=== PATIENT | female | born 1940 | race Caucasian/White ===

== ENCOUNTER 2020-01-22 23:32 | Inpatient (IN) ==
[2020-01-23 00:53] LABS: Basophils # 0.1 10*3/uL (0.0-0.2); Basophils % 0.8 % (0.0-0.8); Eosinophils # 0.2 10*3/uL (0.0-0.87); Eosinophils % 3.1 % (0.00-10.9); Hemoglobin 11.5 GM/DL (12.0-16.0); Immature Granulocytes % 0.3 %; Immature Granulocytes Absolute 0.02 #; Lymphocytes # 2.3 10*3/uL (1.4-4.0); Lymphocytes % 39.2 % (21.3-54.2); Mean Corpuscular HGB Conc 35.9 GM/DL (32-36); Mean Corpuscular Volume 90.1 FL (87-102); Mean Platelet Volume 9.2 FL (9.6-12.0); Monocytes % 7.6 % (1.7-12.7); Platelet Count 233 T/CUMM (130-400); Red Blood Count 3.55 MC/CUMM (3.8-5.5); Red Cell Distribution Width 12.4 % (9.3-17.3); White Blood Count 5.9 T/CUMM (4-12)
[2020-01-23 01:00] LABS: Alanine Aminotransferase 37 U/L (13-56); Albumin 3.8 G/DL (3.4-5.0); Alkaline Phosphatase 70 U/L (45-117); Aspartate Amino Transferase 27 U/L (0-37); Blood Urea Nitrogen 22 MG/DL (7-18); Calcium 9.3 MG/DL (8.5-10.1); Estimated Glom Filtration Rate 62 ML/MIN; Glucose 102 MG/DL (74-106); Osmolality,Calculated 257.2 MOS/KG (273-304); Total Protein 6.8 G/DL (6.4-8.3); Troponin I < 0.015 NG/ML (0.00-0.045)
[2020-01-23 01:07] LABS: PT Patient Result 11.1 SECS (9.8-11.9); Partial Thromboplastin Time 30.3 SECS (23.9-33.8)
[2020-01-23] MEDS ORDERED: MECLIZINE 25 MG TABLET PO PRN (02:38)
[2020-01-23] MEDS ORDERED: POTASSIUM CHLORIDE 20 MEQ TABLET PO PRN (02:44)
[2020-01-23] MEDS ORDERED: MAGNESIUM SULF RIDER 2 GM in PREMIX 1 EACH IV PRN (02:44)
[2020-01-23] MEDS ORDERED: MAGNESIUM SULF RIDER 4 GM in PREMIX 1 EACH IV PRN (02:44)
[2020-01-23 02:54] LABS: Bilirubin,Urine Negative (Negative); Blood, Urine Negative (Negative); Glucose,Urine (UA) Negative (Negative); Ketones,Urine Negative (Negative); Nitrite,Urine Negative (Negative); Protein,Urine Negative; RBC,Urine <1 /HPF (0-4); Squamous Epithelial Cell,Urine Occasional /HPF (0-10); Urine Appearance CLEAR (Clear); Urine Color Straw (Yellow); Urine Specific Gravity 1.005 (1.001-1.035); Urine Urobilinogen < 2.0 EU/DL (0.2-1.0); WBC,Urine 7 /HPF (0-6)
[2020-01-23] MEDS ORDERED: DOCUSATE SODIUM 100 MG CAPSULE PO PRN (03:55)
[2020-01-23] MEDS ORDERED: ACETAMINOPHEN 325 MG TABLET PO PRN (03:55)
[2020-01-23] MEDS ORDERED: GLUCAGON 1 MG VIAL IM PRN (03:55)
[2020-01-23] MEDS ORDERED: ONDANSETRON 4 MG/2 ML VIAL IV PRN (03:55)
[2020-01-23] MEDS ORDERED: DEXTROSE 50% 25 GM/50 ML VIAL IV PRN (03:55)
[2020-01-23] MEDS ORDERED: hydrALAZINE 20 MG/1 ML VIAL IV PRN (03:55)
[2020-01-23] MEDS: SODIUM CHLORIDE 0.9% 1,000 ML IV SCH ×3 (05:08→19:46)
[2020-01-23] MEDS ORDERED: busPIRone 15 MG TABLET PO SCH (09:00)
[2020-01-23] MEDS: INSULIN LISPRO 100 UNIT/ML SUBCUT SCH ×4 (09:30→22:11)
[2020-01-23] MEDS: lisinopriL 20 MG TABLET PO SCH (11:00)
[2020-01-23] MEDS: PANTOPRAZOLE 40 MG TABLET PO SCH (11:00)
[2020-01-23] MEDS: ZINC SULFATE 220 MG CAPSULE PO SCH (11:00)
[2020-01-23] MEDS: SERTRALINE 50 MG TABLET PO SCH (11:00)
[2020-01-23] MEDS: amLODIPine 2.5 MG TABLET PO SCH (11:00)
[2020-01-23] MEDS: MULTIVITAMIN (CENTRUM) TABLET PO SCH (11:00)
[2020-01-23] MEDS: FOLIC ACID 0.4 MG TABLET PO SCH (11:00)
[2020-01-23] MEDS: CARBIDOPA/LEVODOPA CR 50-200 MG TABLET PO SCH ×2 (11:00→22:11)
[2020-01-23] MEDS: CETIRIZINE 10 MG TABLET PO SCH (11:00)
[2020-01-23] MEDS: OREGANO OIL 1500 MG PO SCH ×2 (11:00→22:11)
[2020-01-23] MEDS: MAGNESIUM OXIDE 400 MG TABLET PO SCH ×2 (11:00→22:11)
[2020-01-23] MEDS: MELOXICAM 7.5 MG TABLET PO SCH (11:00)
[2020-01-23] MEDS: GLUCOSAMINE 500 MG TABLET PO SCH ×3 (11:00→22:11)
[2020-01-23] MEDS: carvediloL 3.125 MG TABLET PO SCH ×2 (11:00→17:52)
[2020-01-23] MEDS: ENOXAPARIN 40 MG/0.4 ML SYRINGE SUBCUT SCH (16:07)
[2020-01-23] MEDS: ASPIRIN EC 81 MG TABLET PO SCH (16:07)
[2020-01-23] MEDS ORDERED: diphenhydrAMINE CAP 25 MG CAPSULE PO SCH (21:00)
[2020-01-23] MEDS: MIRTAZAPINE 30 MG TABLET PO SCH (22:11)
[2020-01-23] MEDS: SIMVASTATIN 20 MG TABLET PO SCH (22:12)
[2020-01-23] MEDS ORDERED: ALUMINUM/MAGNES/SIMETH MAX STR 30 ML UDCUP PO PRN (23:08)
[2020-01-24] MEDS: SODIUM CHLORIDE 0.9% 1,000 ML IV SCH (05:27)
[2020-01-24 05:41] LABS: Basophils % 0.7 % (0.0-0.8); Eosinophils # 0.2 10*3/uL (0.0-0.87); Eosinophils % 3.1 % (0.00-10.9); Hematocrit 32.6 VOL% (35.7-47.0); Immature Granulocytes % 0.4 %; Immature Granulocytes Absolute 0.02 #; Lymphocytes # 2.2 10*3/uL (1.4-4.0); Lymphocytes % 39.3 % (21.3-54.2); Mean Corpuscular HGB Conc 33.7 GM/DL (32-36); Mean Corpuscular Volume 92.9 FL (87-102); Monocytes % 7.1 % (1.7-12.7); Neutrophils % 49.4 % (38.7-73.9); Platelet Count 227 T/CUMM (130-400); Red Blood Count 3.51 MC/CUMM (3.8-5.5); Red Cell Distribution Width 12.7 % (9.3-17.3); White Blood Count 5.5 T/CUMM (4-12)
[2020-01-24 07:19] LABS: Calcium 8.9 MG/DL (8.5-10.1); Osmolality,Calculated 265.4 MOS/KG (273-304)
[2020-01-24] MEDS: INSULIN LISPRO 100 UNIT/ML SUBCUT SCH ×4 (08:16→21:14)
[2020-01-24] MEDS: carvediloL 3.125 MG TABLET PO SCH ×2 (10:24→17:22)
[2020-01-24] MEDS: MAGNESIUM OXIDE 400 MG TABLET PO SCH ×2 (10:25→21:12)
[2020-01-24] MEDS: FOLIC ACID 0.4 MG TABLET PO SCH (10:25)
[2020-01-24] MEDS: MULTIVITAMIN (CENTRUM) TABLET PO SCH (10:25)
[2020-01-24] MEDS: GLUCOSAMINE 500 MG TABLET PO SCH ×3 (10:25→21:11)
[2020-01-24] MEDS: ASPIRIN EC 81 MG TABLET PO SCH (10:25)
[2020-01-24] MEDS: MELOXICAM 7.5 MG TABLET PO SCH (10:26)
[2020-01-24] MEDS: lisinopriL 20 MG TABLET PO SCH (10:26)
[2020-01-24] MEDS: ZINC SULFATE 220 MG CAPSULE PO SCH (10:26)
[2020-01-24] MEDS: PANTOPRAZOLE 40 MG TABLET PO SCH (10:26)
[2020-01-24] MEDS: SERTRALINE 50 MG TABLET PO SCH (10:26)
[2020-01-24] MEDS: amLODIPine 2.5 MG TABLET PO SCH (10:26)
[2020-01-24] MEDS: OREGANO OIL 1500 MG PO SCH ×2 (10:26→21:19)
[2020-01-24] MEDS: CARBIDOPA/LEVODOPA CR 50-200 MG TABLET PO SCH ×2 (10:26→21:13)
[2020-01-24] MEDS: CETIRIZINE 10 MG TABLET PO SCH (10:27)
[2020-01-24] MEDS: MEROPENEM 500 MG in SODIUM CHLORIDE 0.9% 100 ML IV SCH ×3 (10:38→21:19)
[2020-01-24 10:42] LABS: Thyroid Stimulating Hormone 2.93 uIU/ml (0.358-3.74)
[2020-01-24] MEDS: ENOXAPARIN 40 MG/0.4 ML SYRINGE SUBCUT SCH (14:05)
[2020-01-24] MEDS: SIMVASTATIN 20 MG TABLET PO SCH (21:13)
[2020-01-24] MEDS: MIRTAZAPINE 30 MG TABLET PO SCH (21:13)
[2020-01-25] MEDS: MEROPENEM 500 MG in SODIUM CHLORIDE 0.9% 100 ML IV SCH (03:49)
[2020-01-25 05:51] LABS: Basophils % 0.5 % (0.0-0.8); Eosinophils # 0.2 10*3/uL (0.0-0.87); Eosinophils % 2.8 % (0.00-10.9); Hematocrit 30.7 VOL% (35.7-47.0); Hemoglobin 10.7 GM/DL (12.0-16.0); Immature Granulocytes % 0.3 %; Immature Granulocytes Absolute 0.02 #; Lymphocytes # 1.9 10*3/uL (1.4-4.0); Lymphocytes % 29.9 % (21.3-54.2); Mean Corpuscular HGB Conc 34.9 GM/DL (32-36); Mean Corpuscular Volume 91.1 FL (87-102); Monocytes % 7.1 % (1.7-12.7); Neutrophils % 59.4 % (38.7-73.9); Platelet Count 200 T/CUMM (130-400); Red Blood Count 3.37 MC/CUMM (3.8-5.5); Red Cell Distribution Width 12.9 % (9.3-17.3); White Blood Count 6.4 T/CUMM (4-12)
[2020-01-25 06:15] LABS: Calcium 8.9 MG/DL (8.5-10.1); Osmolality,Calculated 264.4 MOS/KG (273-304)
[2020-01-25] MEDS: INSULIN LISPRO 100 UNIT/ML SUBCUT SCH ×4 (07:55→21:52)
[2020-01-25] MEDS: carvediloL 3.125 MG TABLET PO SCH ×2 (08:47→17:20)
[2020-01-25] MEDS: ASPIRIN EC 81 MG TABLET PO SCH (08:48)
[2020-01-25] MEDS: FOLIC ACID 0.4 MG TABLET PO SCH (08:48)
[2020-01-25] MEDS: GLUCOSAMINE 500 MG TABLET PO SCH ×3 (08:48→21:52)
[2020-01-25] MEDS: MAGNESIUM OXIDE 400 MG TABLET PO SCH ×2 (08:48→21:51)
[2020-01-25] MEDS: MULTIVITAMIN (CENTRUM) TABLET PO SCH (08:48)
[2020-01-25] MEDS: OREGANO OIL 1500 MG PO SCH ×2 (08:49→21:50)
[2020-01-25] MEDS: lisinopriL 20 MG TABLET PO SCH (08:49)
[2020-01-25] MEDS: MELOXICAM 7.5 MG TABLET PO SCH (08:49)
[2020-01-25] MEDS: amLODIPine 2.5 MG TABLET PO SCH (08:49)
[2020-01-25] MEDS: PANTOPRAZOLE 40 MG TABLET PO SCH (08:50)
[2020-01-25] MEDS: SERTRALINE 50 MG TABLET PO SCH (08:50)
[2020-01-25] MEDS: ZINC SULFATE 220 MG CAPSULE PO SCH (08:50)
[2020-01-25] MEDS: CARBIDOPA/LEVODOPA CR 50-200 MG TABLET PO SCH ×2 (08:50→21:51)
[2020-01-25] MEDS: ENOXAPARIN 40 MG/0.4 ML SYRINGE SUBCUT SCH (13:37)
[2020-01-25] MEDS: SIMVASTATIN 20 MG TABLET PO SCH (21:51)
[2020-01-25] MEDS: MIRTAZAPINE 30 MG TABLET PO SCH (21:52)
[2020-01-26 05:11] LABS: Basophils % 0.6 % (0.0-0.8); Eosinophils # 0.2 10*3/uL (0.0-0.87); Eosinophils % 3.6 % (0.00-10.9); Hematocrit 29.9 VOL% (35.7-47.0); Hemoglobin 10.2 GM/DL (12.0-16.0); Immature Granulocytes % 0.2 %; Immature Granulocytes Absolute 0.01 #; Lymphocytes # 2.1 10*3/uL (1.4-4.0); Lymphocytes % 41.3 % (21.3-54.2); Mean Corpuscular HGB Conc 34.1 GM/DL (32-36); Mean Corpuscular Volume 92.9 FL (87-102); Mean Platelet Volume 9.3 FL (9.6-12.0); Monocytes % 7.8 % (1.7-12.7); Neutrophils % 46.5 % (38.7-73.9); Platelet Count 202 T/CUMM (130-400); Red Blood Count 3.22 MC/CUMM (3.8-5.5); Red Cell Distribution Width 13.1 % (9.3-17.3)
[2020-01-26 05:38] LABS: Calcium 8.8 MG/DL (8.5-10.1)
[2020-01-26] MEDS: INSULIN LISPRO 100 UNIT/ML SUBCUT SCH ×4 (09:18→21:44)
[2020-01-26] MEDS: carvediloL 3.125 MG TABLET PO SCH ×2 (09:19→16:55)
[2020-01-26] MEDS: ASPIRIN EC 81 MG TABLET PO SCH (09:19)
[2020-01-26] MEDS: FOLIC ACID 0.4 MG TABLET PO SCH (09:19)
[2020-01-26] MEDS: MULTIVITAMIN (CENTRUM) TABLET PO SCH (09:19)
[2020-01-26] MEDS: amLODIPine 2.5 MG TABLET PO SCH (09:20)
[2020-01-26] MEDS: MELOXICAM 7.5 MG TABLET PO SCH (09:20)
[2020-01-26] MEDS: OREGANO OIL 1500 MG PO SCH ×2 (09:20→21:40)
[2020-01-26] MEDS: MAGNESIUM OXIDE 400 MG TABLET PO SCH ×2 (09:20→21:38)
[2020-01-26] MEDS: GLUCOSAMINE 500 MG TABLET PO SCH ×3 (09:20→21:39)
[2020-01-26] MEDS: lisinopriL 20 MG TABLET PO SCH (09:20)
[2020-01-26] MEDS: CARBIDOPA/LEVODOPA CR 50-200 MG TABLET PO SCH ×2 (09:21→21:39)
[2020-01-26] MEDS: PANTOPRAZOLE 40 MG TABLET PO SCH (09:21)
[2020-01-26] MEDS: SERTRALINE 50 MG TABLET PO SCH (09:21)
[2020-01-26] MEDS: ZINC SULFATE 220 MG CAPSULE PO SCH (09:21)
[2020-01-26] MEDS: ENOXAPARIN 40 MG/0.4 ML SYRINGE SUBCUT SCH (13:51)
[2020-01-26] MEDS: SIMVASTATIN 20 MG TABLET PO SCH (21:39)
[2020-01-26] MEDS: MIRTAZAPINE 30 MG TABLET PO SCH (21:39)
[2020-01-27] MEDS: INSULIN LISPRO 100 UNIT/ML SUBCUT SCH ×2 (07:42→11:58)
[2020-01-27] MEDS: MELOXICAM 7.5 MG TABLET PO SCH (08:37)
[2020-01-27] MEDS: ASPIRIN EC 81 MG TABLET PO SCH (08:37)
[2020-01-27] MEDS: FOLIC ACID 0.4 MG TABLET PO SCH (08:37)
[2020-01-27] MEDS: GLUCOSAMINE 500 MG TABLET PO SCH (08:37)
[2020-01-27] MEDS: MULTIVITAMIN (CENTRUM) TABLET PO SCH (08:37)
[2020-01-27] MEDS: ZINC SULFATE 220 MG CAPSULE PO SCH (08:37)
[2020-01-27] MEDS: lisinopriL 20 MG TABLET PO SCH (08:38)
[2020-01-27] MEDS: carvediloL 3.125 MG TABLET PO SCH (08:38)
[2020-01-27] MEDS: SERTRALINE 50 MG TABLET PO SCH (08:38)
[2020-01-27] MEDS: PANTOPRAZOLE 40 MG TABLET PO SCH (08:38)
[2020-01-27] MEDS: CARBIDOPA/LEVODOPA CR 50-200 MG TABLET PO SCH (08:38)
[2020-01-27] MEDS: amLODIPine 2.5 MG TABLET PO SCH (08:38)
[2020-01-27] MEDS: MAGNESIUM OXIDE 400 MG TABLET PO SCH (08:38)
[2020-01-27] MEDS: OREGANO OIL 1500 MG PO SCH (08:39)
[2020-01-27 11:21] VITALS: BP 110/66
== END 2020-01-27 13:20 | disposition swing bed (61) | DRG 917 ==
LOC: EDBD → EDUNIT# → N.ED 23:32 → N.EDINP 23:32 → OBSVTOIN 01-23 02:36 → SUATTDRO 01-23 02:36 → N.3E 01-23 14:16
PROVIDERS: ADMIT Internal Medicine; ATTEND Internal Medicine Geriatric Medicine